=== PATIENT | male | born 1965 | race Two or more races ===

== ENCOUNTER → 2024-08-22 | Outpatient (CLI) | payer OTHER, MEDICAID, SELFPAY ==
--- NOTE | 2024-08-22 14:53 | XR_ITS ---
Examination: PA lateral chest 2 views TECHNIQUE: Upright PA lateral chest 2 views Exam date and time: August 22, 2024 1408 hours COMPARISON: July 01, 2024 INDICATIONS: Diagnosis coccidiomycosis 6 months ago FINDINGS: Normal heart size Lungs are clear. The osseous structures are intact IMPRESSION: No active disease
== END | disposition home or self-care (01) ==
PROVIDERS: PCP Internal Medicine; Referring Provider Internal Medicine; Visit Provider Internal Medicine
DX: B88.1 Tungiasis [sandflea infestation] (principal)
CPT/HCPCS: 71046